=== PATIENT | female | born 1935 | race Caucasian/White ===

== ENCOUNTER 2017-09-18 19:20 | Observation (INO) | payer MEDICARE ==
[~2017-09-18] VITALS: Ht 154.9 cm; Wt 52.2 kg
[~2017-09-18 19:20] MED LIST: ASPIR 8181 MG PO; ASPIRIN325 MG PO; LEVAQUIN500 MG PO; METOPROLOL SUCC25 MG PO; MUCINEX DM ER1 EACH PO; OMEPRAZOLE40 MG PO; PLAVIX75 MG PO; TESSALON PERLE100 MG PO; ULTRAM 50MG50 MG PO
[2017-09-18 20:03] LABS: BASOPHILS % 0.3 % (0.0-1.0); EOSINOPHILS # (AUTO) 0.1 (0.0-0.4); HEMATOCRIT 34.2 % (34.2-44.1); HEMOGLOBIN 11.6 g/dL (12.0-16.0); LYMPHOCYTES # (AUTO) 1.9 (1.0-3.2); LYMPHOCYTES % 16.1 % (18.0-39.1); MEAN CORPUSCULAR HEMOGLOBIN 30.1 pg (28-32); MEAN CORPUSCULAR HGB CONC 33.9 g/dL (31-35); MEAN CORPUSCULAR VOLUME 88.6 fL (81-99); MONOCYTES % 8.8 % (4.4-11.3); NEUTROPHILS # (AUTO) 8.4 (2.1-6.9); NEUTROPHILS % 73.3 % (38.7-80.0); PLATELET COUNT 214 x10e3/uL (140-360); RED BLOOD COUNT 3.86 x10e6/uL (3.6-5.1); RED CELL DISTRIBUTION WIDTH 13.2 % (11.7-14.4)
[2017-09-18 20:05] LABS: CLARITY,URINE CLEAR (CLEAR); COLOR,URINE YELLOW (YELLOW); KETONES,URINE NEGATIVE (NEGATIVE); LEUKOCYTE ESTERASE ,URINE 1+ (NEGATIVE); NITRITE,URINE NEGATIVE (NEGATIVE); PROTEIN,URINE DIPSTICK NEGATIVE (NEGATIVE); URINE UROBILINOGEN 0.2 mg/dL (0.2 - 1)
[2017-09-18 20:06] LABS: BILIRUBIN,URINE NEGATIVE (NEGATIVE)
[2017-09-18 20:13] LABS: BACTERIA,URINE MANY /HPF; EPITHELIAL CELLS,URINE FEW /LPF; RBC,URINE 0-5 /HPF (0-5)
[2017-09-18 20:15] LABS: INR 1.09; PARTIAL THROMBOPLASTIN TIME 30.2 seconds (23.8-35.5); PROTHROMBIN TIME 13.3 seconds (11.9-14.5)
[2017-09-18 20:24] LABS: ALANINE AMINOTRANSFERASE 11 IU/L (0-55); ALBUMIN 3.6 g/dL (3.5-5.0); ALKALINE PHOSPHATASE 80 IU/L (40-150); BLOOD UREA NITROGEN 16 mg/dL (7-26); BUN/CREATININE RATIO 24 (6-25); CALCIUM 10.2 mg/dL (8.4-10.2); CARBON DIOXIDE 24 mmol/L (22-29); CHLORIDE 106 mmol/L (98-107); CREATINE KINASE 48 IU/L (29-168); CREATININE, SERUM 0.67 mg/dL (0.57-1.11); EST GLOMERULAR FILTRATION RATE > 60 ML/MIN (60-); GLUCOSE 137 mg/dL (74-118); SODIUM 139 mmol/L (136-145)
[2017-09-18] MEDS ORDERED: NITROGLYCERIN 2% OINT 1 GM PKT TOP ONE (20:30)
--- NOTE | 2017-09-18 20:53 | Diagnostic Imaging Report ---
EXAMINATION: CHEST 2 VIEWS INDICATION: Chest pain, history of CABG COMPARISON: 05/03/2016 FINDINGS: TUBES and LINES: None. LUNGS: Lungs are well inflated. Lungs are clear. There is no evidence of pneumonia or pulmonary edema. PLEURA: No pleural effusion or pneumothorax. HEART AND MEDIASTINUM: The cardiomediastinal silhouette is unremarkable. Midline sternotomy wires are intact in this patient with history of CABG procedure BONES AND SOFT TISSUES: No acute osseous lesion. Soft tissues are unremarkable. UPPER ABDOMEN: No free air under the diaphragm. IMPRESSION: No acute thoracic abnormality. Signed by: Dr. Christiano Irby M.D. on 09/18/2017 8:49 PM
[2017-09-18] MEDS ORDERED: AZITHROMYCIN 500MG/NS 250 ML 250 ML IV ONE (23:00)
[2017-09-18] MEDS ORDERED: ENOXAPARIN SOD INJ 60 MG/0.6 ML SYR SC STA (23:04)
--- OUTSIDE RECORDS SUMMARY | 2017-09-18 23:15 | XMS REPORT ---
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 Allergies, Adverse Reactions, Alerts This patient has no known allergies or adverse reactions. Medications This patient has no known medications. Results Test Description Test Time Test Comments Text Results Atomic Results Result Comments CHEST 2 VIEWS [place] [id number] [place] [id number] Patient Name: NISHA ARMSTRONG MR #: [id number] : 1935 Age/Sex: 82/F Req #: [id number] Adm Physician: Ordered by: SANTOS TOBIN MD Report #: [id number] Location: ER Room/Bed: Procedure: [id number] DX/CHEST 2 VIEWS Exam Date: 09/18/17 Exam Time: 2030 REPORT STATUS: Signed EXAMINATION: CHEST 2 VIEWS INDICATION: Chest pain, history of CABG COMPARISON: 05/03/2016 FINDINGS: TUBES and LINES: None. LUNGS: Lungs are well inflated. Lungs are clear. There is no evidence of pneumonia or pulmonary edema. PLEURA: No pleural effusion or pneumothorax. HEART AND MEDIASTINUM: The cardiomediastinal silhouette is unremarkable. Midline sternotomy wires are intact in this patient with history of CABG procedure BONES AND SOFT TISSUES: No acute osseous lesion. Soft tissues are unremarkable. UPPER ABDOMEN: No free air under the diaphragm. IMPRESSION: No acute thoracic abnormality. Signed by: Dr. Christiano Irby M.D. on 09/18/2017 8:49 PM Dictated By: CHRISTIANO ALVAREZ MD 48 Transcribed By: CARLOZ on 09/18/172048 COPY TO: SANTOS TOBIN MD
[2017-09-19] VITALS (9 sets, daily range): BP systolic 107–135; BP diastolic 60–75
[2017-09-19] MEDS: NITROGLYCERIN 2% OINT 1 GM PKT TOP SCH ×4 (00:52→17:52)
[2017-09-19 06:40] LABS: BASOPHILS % 0.3 % (0.0-1.0); EOSINOPHILS # (AUTO) 0.1 (0.0-0.4); EOSINOPHILS % 0.6 % (0.0-6.0); HEMATOCRIT 30.4 % (34.2-44.1); HEMOGLOBIN 10.5 g/dL (12.0-16.0); LYMPHOCYTES # (AUTO) 1.5 (1.0-3.2); LYMPHOCYTES % 13.1 % (18.0-39.1); MEAN CORPUSCULAR HEMOGLOBIN 30.2 pg (28-32); MEAN CORPUSCULAR HGB CONC 34.5 g/dL (31-35); MEAN CORPUSCULAR VOLUME 87.4 fL (81-99); MONOCYTES # (AUTO) 1.1 (0.2-0.8); MONOCYTES % 9.2 % (4.4-11.3); NEUTROPHILS # (AUTO) 8.8 (2.1-6.9); PLATELET COUNT 194 x10e3/uL (140-360); RED BLOOD COUNT 3.48 x10e6/uL (3.6-5.1); RED CELL DISTRIBUTION WIDTH 13.1 % (11.7-14.4)
[2017-09-19 07:00] LABS: CREATINE KINASE 34 IU/L (29-168)
[2017-09-19 07:42] LABS: ALANINE AMINOTRANSFERASE 10 IU/L (0-55); ALBUMIN 3.1 g/dL (3.5-5.0); ALKALINE PHOSPHATASE 65 IU/L (40-150); ANION GAP 10.8 mmol/L (8-16); BLOOD UREA NITROGEN 12 mg/dL (7-26); BUN/CREATININE RATIO 21 (6-25); CALCIUM 9.7 mg/dL (8.4-10.2); CARBON DIOXIDE 22 mmol/L (22-29); CHLORIDE 108 mmol/L (98-107); CHOLESTEROL 120 MD/DL (0-199); CREATININE, SERUM 0.57 mg/dL (0.57-1.11); EST GLOMERULAR FILTRATION RATE > 60 ML/MIN (60-); GLUCOSE 116 mg/dL (74-118); HDL CHOLESTEROL 40 MG/DL (40-60); LDL CHOLESTEROL 63 MG/DL (60-130); POTASSIUM 3.8 mmol/L (3.5-5.1); SODIUM 137 mmol/L (136-145); TRIGLYCERIDES 86 MG/DL (0-149)
--- NOTE | 2017-09-19 08:25 | History and Physical ---
PRIMARY CARE PHYSICIAN: Dr. Goodrich CHIEF COMPLAINT: Cough and shortness of breath. HISTORY OF PRESENT ILLNESS: This is an 82-year-old woman with a history of pneumonia in May 2017, now developing cough and shortness of breath prompting her visit to the hospital. She states that the symptoms have been ongoing for 2 days. She is admitted for further evaluation and management. PAST MEDICAL HISTORY: Right lung pneumonia in May 2017, hypokalemia, hyperbilirubinemia, coronary artery disease, status post coronary artery bypass grafting in 2007, TIA, hypertension, GERD. PAST SURGICAL HISTORY: Coronary artery bypass grafting in 2007, back surgery, carpal tunnel release surgery. ALLERGIES: PER ELECTRONIC MEDICAL RECORD. FAMILY HISTORY: Unknown. SOCIAL HISTORY: Patient is . She has 2 children. No alcohol, illicits or cigarettes. MEDICATIONS: Per electronic medical records. REVIEW OF SYSTEMS: Denies any dizziness or chest pain. PHYSICAL EXAMINATION VITAL SIGNS: Reviewed. GENERAL: A tired-appearing woman resting in bed. HEENT: Anicteric. Pupils respond to light. No oral lesions. CARDIOVASCULAR: Normal S1 and S2. LUNGS: Good air movement. Coarse coughing with deep inspiration. ABDOMEN: Soft, nontender and nondistended. EXTREMITIES: No edema or calf tenderness. NEUROLOGICAL: Alert and oriented times 3. Moving all extremities. SKIN: Dry. PSYCHIATRIC: Normal affect. LABS: Reviewed. MEDICATIONS: Reviewed. ASSESSMENT AND PLAN: An 82-year-old woman with: 1. Acute bronchitis: Will continue antibiotics and antitussive medications. Add loratadine. 2. Coronary artery disease with history of bypass: Continue home Plavix, aspirin and other medication regimen, including statin. 3. Hypertension: Continue home medications. 4. Sepsis: She has leukocytosis, fever and urinary tract infection. Will continue antibiotics and follow up cultures. 5. Prophylaxis: Will use sequential compression devices and Pepcid. 6. Disposition: Monitor closely. Follow up cultures. Job#: [id number] CARLOS
[2017-09-19] MEDS ORDERED: ASPIRIN 325 MG TAB PO SCH (09:00)
[2017-09-19] MEDS ORDERED: PANTOPRAZOLE SOD 40 MG TABEC PO SCH (09:00)
[2017-09-19] MEDS ORDERED: ASPIRIN 325 MG TAB EC PO SCH (09:00)
[2017-09-19] MEDS ORDERED: LORATADINE 10 MG TAB PO SCH (09:00)
[2017-09-19] MEDS ORDERED: AZITHROMYCIN 500MG/NS 250 ML 250 ML IV SCH (09:00)
[2017-09-19] MEDS ORDERED: METOPROLOL SUCCINATE 25 MG TAB XL PO SCH (09:00)
[2017-09-19] MEDS: BENZONATATE 100 MG CAP PO SCH ×3 (09:42→21:12)
[2017-09-19 14:14] LABS: CREATINE KINASE 36 IU/L (29-168)
[2017-09-19] MEDS: GUAIFENESIN 600MG/DEXTROMETHORPHAN 30MG TABSR PO SCH ×2 (16:40→21:57)
[2017-09-19] MEDS ORDERED: CLOPIDOGREL BISULFATE 75 MG TAB PO SCH (21:00)
[2017-09-20] MEDS: NITROGLYCERIN 2% OINT 1 GM PKT TOP SCH ×2 (00:33→05:58)
[2017-09-20 00:40] VITALS: BP 138/69
[2017-09-20 04:45] VITALS: BP 101/52
[2017-09-20] MEDS: GUAIFENESIN 600MG/DEXTROMETHORPHAN 30MG TABSR PO SCH (05:58)
[2017-09-20 06:04] VITALS: BP 124/60
[2017-09-20 07:30] VITALS: BP 124/60
[2017-09-20 08:20] VITALS: BP 117/74
[2017-09-20] MEDS ORDERED: LORATADINE10 MG PO (08:44)
--- NOTE | 2017-09-20 22:14 | Discharge Summary ---
The patient's daughter was contacted. Pharmacy was contacted and Levaquin 1000 mg was called into the pharmacy for 5 days for the treatment of urinary tract infection. The patient will follow up with primary care doctor in 1 week. MITZI JETT MD Job#: [id number] GE
--- NOTE | 2017-09-20 22:40 | Discharge Summary ---
PRINCIPAL DIAGNOSES 1. Acute bronchitis. 2. Coronary artery disease with history of bypass. 3. Sepsis. SECONDARY DIAGNOSIS: Hypertension. CHIEF COMPLAINT: Cough and shortness of breath. HISTORY OF PRESENT ILLNESS: This is an 82-year-old woman with shortness of breath. Please refer to H and P for further details. HOSPITAL COURSE: Patient admitted with acute bronchitis, also had a sepsis. She also had urinary tract infection treated with antimicrobial therapy. Microbiology culture showed gram-negative rods. However, patient's leukocytosis was mild and patient was afebrile; therefore, patient was transitioned out of the hospital with plans to follow up with primary care doctor. DISCHARGE MEDICATION: Per electronic medical record. FOLLOWUP: With primary care doctor in 1 week. CONDITION ON DISCHARGE: Stable. DISCHARGE LOCATION: Home, on antibiotics. MITZI JETT MD Job#: [id number] CQ
== END 2017-09-20 11:07 | disposition home or self-care (01) ==
LOC: ER 19:20 → IMCU 23:13
PROVIDERS: ADMIT Internal Medicine; ATTEND Internal Medicine
DX: A41.9 Sepsis, unspecified organism (principal); J20.9 Acute bronchitis, unspecified; N39.0 Urinary tract infection, site not specified; R07.9 Chest pain, unspecified; I10 Essential (primary) hypertension; I25.10 Atherosclerotic heart disease of native coronary artery without angina pectoris; Z95.1 Presence of aortocoronary bypass graft; Z88.5 Allergy status to narcotic agent; B96.20 Unspecified Escherichia coli [E. coli] as the cause of diseases classified elsewhere
CPT/HCPCS: 36415 ×2; 71046; 80053 ×2; 80061; 81001; 82550 ×2; 82553 ×2; 83880; 84484 ×2; 85025 ×2; 85610; 85730; 87086; 87186; 93005; 99284; G0378 ×3; J0456 ×2; J1650; S0164

== ENCOUNTER 2018-06-17 16:10 | Emergency (ER) | payer MEDICARE ==
[~2018-06-17] VITALS: Ht 154.9 cm; Wt 52.2 kg
[~2018-06-17 16:10] MED LIST changes: +LORATADINE10 MG PO
--- NOTE | 2018-06-17 17:33 | Diagnostic Imaging Report ---
Examination: CT head without contrast Clinical Indication: Fall with head injury. Confusion. Altered mental status. Technique: Transaxial noncontrast images from the skull base through the vertex were obtained. Sagittal and coronal reformatted images were done. Dose modulation, iterative reconstruction, and/or weight based adjustment of the mA/kV was utilized to reduce the radiation dose to as low as reasonably achievable. Comparison: None. Findings: Scalp: No abnormalities. Bones: Intact. No fractures. No blastic or lytic lesions. Brain sulci: Mild volume loss for patient's age. Ventricles: Ex vacuo dilatation. No hydrocephalus. Extra-axial space: No abnormalities. Parenchyma: There are confluent areas of low-attenuation within subcortical and periventricular white matter, nonspecific, but could represent microvascular ischemic disease. No masses, hemorrhage, or acute or chronic cortical based vascular insults. Suprasellar region: No abnormalities. Craniocervical junction: The foramen magnum is patent. No Chiari one malformation. Incidental findings: Atherosclerotic calcification of the cavernous and supraclinoid internal carotid and V4 segments of the bilateral vertebral arteries. Impression: 1. No acute intracranial finding. 2. Mild chronic microvascular ischemic change. Signed by: Dr. Anuradha Alberts M.D. on 06/17/2018 5:30 PM
--- NOTE | 2018-06-17 17:35 | Diagnostic Imaging Report ---
LEFT HIP X-RAY - 3 VIEWS HISTORY: ^FALL COMPARISON: None available. FINDINGS: Bones: No acute displaced fracture. Osseous alignment is within normal limits. Joints: Degenerative changes of the bilateral hips, sacroiliac joints, and lower lumbar spines. Soft tissues: Surgical clips in the right inguinal region. IMPRESSION: No acute radiographic abnormality. Signed by: Dr. Gloria Riggs M.D. on 06/17/2018 5:32 PM
--- NOTE | 2018-06-17 18:07 | Diagnostic Imaging Report ---
Examination: CT CERVICAL SPINE WITHOUT CONTRAST HISTORY:Neck injury after fall. COMPARISON:None. TECHNIQUE: Multidetector helical axial images were obtained without contrast from the foramen magnum to T1. Coronal and sagittal reformatted images were done. Bone and soft tissue windows were evaluated. Dose modulation, iterative reconstruction, and/or weight based adjustment of the mA/kV was utilized to reduce the radiation dose to as low as reasonably achievable. FINDINGS: Alignment:Normal alignment with straightening of normal lordosis. Vertebrae: Normal height and density. No acute fracture, infection or neoplasm. Disc space heights: Moderate narrowing at C4-C5, C5-C6 and C6-C7. Caliber of spinal canal: Developmentally normal. Posterior fossa and craniocervical junction: Foramen magnum patent. No Chiari 1 malformation. Soft tissues: No abnormality. Degenerative changes: C3-C4: Central disc protrusion. No foraminal or canal stenosis. C4-C5: Diffuse disc osteophyte complex and bilateral uncovertebral and facet arthropathy result in mild right and moderate left neural foraminal narrowing. No canal stenosis. C5-C6: Asymmetric left disc osteophyte complex and bilateral uncovertebral arthropathy result in mild right and moderate left neural foraminal narrowing. No canal stenosis. C6-C7: Diffuse disc osteophyte complex and bilateral uncovertebral arthropathy result in mild bilateral neural foraminal narrowing. No canal stenosis. Visualized lung apices: No abnormalities. IMPRESSION: 1. No acute abnormalities. 2. Degenerative changes, as above. Signed by: Dr. Anuradha Alberts M.D. on 06/17/2018 6:04 PM
== END 2018-06-17 19:28 | disposition home or self-care (01) ==
LOC: ER 16:10
DX: S00.83XA Contusion of other part of head, initial encounter (principal); S30.0XXA Contusion of lower back and pelvis, initial encounter; W01.0XXA Fall on same level from slipping, tripping and stumbling without subsequent striking against object, initial encounter; Y92.008 Other place in unspecified non-institutional (private) residence as the place of occurrence of the external cause; F03.90 Unspecified dementia, unspecified severity, without behavioral disturbance, psychotic disturbance, mood disturbance, and anxiety; I25.10 Atherosclerotic heart disease of native coronary artery without angina pectoris; I10 Essential (primary) hypertension; K21.9 Gastro-esophageal reflux disease without esophagitis; Z95.1 Presence of aortocoronary bypass graft; Z87.891 Personal history of nicotine dependence
CPT/HCPCS: 70450; 72125; 99283